=== PATIENT | male | born 1975 ===

== ENCOUNTER 2022-04-24 05:15 | Day surgery (SDC) | payer OTHER ==
[~2022-04-24 05:15] MED LIST: CRESTOR10 MG PO; GLUMETZA500 MG PO; LOSARTAN POTASS25 MG PO
== END 2022-04-24 10:40 | disposition home or self-care (01) ==
LOC: CIR.AMB 05:15 → EDBD 12:45 → CIR.AMB 12:45
PROVIDERS: ATTEND Surgery
DX: K43.6 Other and unspecified ventral hernia with obstruction, without gangrene (principal); I10 Essential (primary) hypertension; E11.9 Type 2 diabetes mellitus without complications; Z20.822 Contact with and (suspected) exposure to COVID-19
CPT/HCPCS: 49592; C1781